=== PATIENT | male | born 2000 | race Caucasian/White ===

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

== ENCOUNTER 2021-07-23 18:59 | Emergency (ER) | payer BC ==
[2021-07-23 19:12] VITALS: BP 107/65; PULSE 63; TEMP 98.9; BMI 25.8
== END 2021-07-23 19:56 | disposition home or self-care (01) ==
LOC: FER 18:59
DX: K64.9 Unspecified hemorrhoids (principal)
CPT/HCPCS: 99281-25